=== PATIENT | female | born 1965 | race Caucasian/White ===

== ENCOUNTER 2019-11-22 02:06 | Observation (INO) | payer SELFPAY ==
[~2019-11-22] VITALS: Ht 165.1 cm; Wt 59.0 kg
== END 2019-11-22 09:37 | disposition home or self-care (01) ==
LOC: ER 02:06 → EOR 02:07
PROVIDERS: ADMIT Emergency Medicine
DX: F19.939 Other psychoactive substance use, unspecified with withdrawal, unspecified (principal); F41.9 Anxiety disorder, unspecified
CPT/HCPCS: 99282; A9270-GY; Q0163